=== PATIENT | male | born 1945 | race Caucasian/White ===

== ENCOUNTER 2017-11-17 19:02 | Inpatient (IN) | payer MEDICARE, BC ==
[~2017-11-17] VITALS: Ht 182.9 cm; Wt 104.1 kg
[2017-11-17] VITALS (15 sets, daily range): BP systolic 75–131; BP diastolic 48–78; PULSE 59–78; RESP 16–20; TEMP 97.7; O2SAT 62–97
[2017-11-17] MEDS ORDERED: ASPIRIN 81 MG CHEW TAB PO ONE (19:30)
[2017-11-17] MEDS ORDERED: SODIUM CHLORIDE 0.9% FLUSH 10 ML FLUSH IVF PRN (19:30)
[2017-11-17] MEDS ORDERED: MORPHINE SULFATE 4 MG/ML INJ IV PUSH ONE (19:30)
--- NOTE | 2017-11-17 19:47 | RADRPT ---
EXAM DATE/TIME: 11/17/2017 19:22 [place] COMPARISON: No previous studies available for comparison. INDICATIONS : Chest pain. MEDICAL HISTORY : Diabetes mellitus type II. Hypercholesterolemia. Hypertension. Glaucoma. SURGICAL HISTORY : None. ENCOUNTER: Initial ACUITY: 1 day PAIN SCORE: 4/10 LOCATION: Bilateral chest FINDINGS: Underinflated frontal and lateral views of the chest demonstrate a normal-sized cardiac silhouette wi th calcification of the aorta. There is atelectasis at the lung bases. No pleural effusion, airspace consolidation, or pneumothorax is identified. Bones and soft tissues demonstrate no acute abnormality . CONCLUSION: No acute cardiopulmonary abnormality is identified. Micheal Mendez MD on November 17, 2017 at 19:44 Board Certified Radiologist. This report was verified electronically.
[2017-11-17 19:58] LABS: AUTOMATED NEUTROPHIL # 3.9 TH/MM3 (1.8-7.7); BASOPHIL # 0.1 TH/MM3 (0-0.2); BASOPHIL % 1.3 % (0.0-2.0); EOSINOPHIL # 0.3 TH/MM3 (0-0.4); HEMATOCRIT 46.7 % (39.0-51.0); LYMPH % 28.3 % (9.0-44.0); LYMPHOCYTE # 1.9 TH/MM3 (1.0-4.8); MEAN CELL VOLUME 93.3 FL (80.0-100.0); MEAN CORPUSCULAR HEMOGLOBIN 30.1 PG (27.0-34.0); MEAN CORPUSCULAR HGB CONC 32.2 % (32.0-36.0); MEAN PLATELET VOLUME 9.5 FL (7.0-11.0); MONO % 5.9 % (0.0-8.0); MONOCYTE # 0.4 TH/MM3 (0-0.9); NEUT % 60.5 % (16.0-70.0); PLATELET COUNT 256 TH/MM3 (150-450); WHITE BLOOD COUNT 6.6 TH/MM3 (4.0-11.0)
[2017-11-17] MEDS ORDERED: NITROGLYCERIN 2% OINT 1 GM PACKET TOPICAL ONE (20:00)
[2017-11-17 20:03] LABS: CHLORIDE 103 MEQ/L (98-107); SODIUM (NA) 138 MEQ/L (136-145)
[2017-11-17 20:05] LABS: CALCIUM 9.3 MG/DL (8.5-10.1)
[2017-11-17 20:06] LABS: BLOOD UREA NITROGEN 11 MG/DL (7-18); GLUCOSE,RANDOM 193 MG/DL (74-106); MAGNESIUM 2.1 MG/DL (1.5-2.5)
[2017-11-17 20:09] LABS: GLOMERULAR FILTRATION RATE 66 ML/MIN (>89)
[2017-11-17 20:14] LABS: TROPONIN I LESS THAN 0.02 NG/ML (0.02-0.05)
--- NOTE | 2017-11-17 20:17 | PD ---
HPI . Chest pain Chief Complaint: Chest Pain Time Seen by Provider: 19:10 Travel History International Travel<30 days: No Contact w/Intl Traveler<30days: No Traveled to known affect area: No History of Present Illness HPI This patient presents with chest pain. Onset was 6:30 PM. He is to his jaw and shoulder. He describes the pain as sharp. It is associated with diaphoresis. At its most severe it was rated 8/10. This patient is on vacation here from [place]. He was transported to us by [facility] and was given aspirin and a sublingual nitroglycerin prior to presentation. EMS reported that his blood pressure has been relatively low prior to presentation. The nurse got the report from EMS that his systolic pressure was 90. The patient does state that his chest pain is slightly relieved by a single sublingual nitroglycerin. PFSH Past Medical History Cardiovascular Problems: Yes (HTN) Diabetes: Yes Social History Tobacco Use: No Allergies-Medications (Allergen,Severity, Reaction): Coded Allergies: No Known Allergies (Unverified , 11/17/17) Review of Systems Except as stated in HPI: all other systems reviewed are Neg General / Constitutional: Positive: Other Cardiovascular: Positive: Chest Pain or Discomfort Physical Exam Narrative Initial systolic blood pressure was 84 GENERAL: Awake and alert. He looks uncomfortable. SKIN: [place]. Clammy. HEAD: Normocephalic. Atraumatic. EYES: Pupils equal and round. No scleral icterus. No injection or drainage. ENT: No nasal bleeding or discharge. Mucous membranes pink and moist. NECK: Trachea midline. Full range of motion without pain.. CARDIOVASCULAR: Regular rate and rhythm. Heart sounds normal. RESPIRATORY: No accessory muscle use. Clear to auscultation. Breath sounds equal bilaterally. GASTROINTESTINAL: Abdomen soft. Nontender. Bowel sounds present. Nondistended. MUSCULOSKELETAL: No obvious deformities. NEUROLOGICAL: Awake and alert. No obvious cranial nerve deficits. Motor grossly within normal limits. Normal speech. PSYCHIATRIC: Appropriate mood and affect; insight and judgment normal. Data Data Last Documented VS Vital Signs Date Time Temp Pulse Resp B/P (MAP) Pulse Ox O2 Delivery O2 Flow Rate FiO2 11/17/17 19:57 74 18 116/78 (91) 96 Room Air 11/17/17 19:02 97.7 Orders Orders Basic Metabolic Panel (Bmp) (11/17/17 19:17) Complete Blood Count With Diff (2/24/18 19:17) Magnesium (Mg) (11/17/17 19:17) Prothrombin Time / Inr (Pt) (11/17/17 19:17) Act Partial Throm Time (Ptt) (11/17/17 19:17) Troponin I (11/17/17 19:17) Ecg Monitoring (11/17/17 19:17) Iv Access Insert/Monitor (11/17/17 19:17) Oximetry (11/17/17 19:17) Aspirin Chew (Aspirin Chew) (11/17/17 19:30) Morphine Inj (Morphine Inj) (11/17/17 19:30) Sodium Chloride 0.9% Flush (Ns Flush) (11/17/17 19:30) Chest, Pa & Lat (11/17/17 19:17) Electrocardiogram (11/17/17 19:04) Nitroglycerin 2% Oint (Nitroglycerin 2% (11/17/17 20:00) Ondansetron Inj (Zofran Inj) (11/17/17 20:30) Morphine Inj (Morphine Inj) (11/17/17 20:30) Heparin Inj (Heparin Inj) (11/17/17 20:30) Heparin Inj (Heparin Inj) (11/18/17 02:30) Heparin Inj (Heparin Inj) (11/18/17 02:30) Heparin-D5w 25,000 U/250 Ml (Heparin-D5w (11/17/17 20:30) Cbc No Diff, Includes Plts (11/20/17 06:00) Act Partial Throm Time (Ptt) (11/18/17 03:18) Occult Blood (Hemoccult) Stool (11/17/17 20:18) Bedside Glucose GEENA.CSUGAR (11/17/17 20:22) Blood Glucose Goal (Criteria) (11/17/17 20:22) Hypoglycemia 70 Mg/Dl Or < (11/17/17 20:22) Notify Dr: Other (11/17/17 20:22) Dextrose 50% In [place] (Vial) Inj (D50w (Vi (11/17/17 20:30) Glucagon Inj (Glucagon Inj) (11/17/17 20:30) Insulin Aspart Supplemtl Scale (Novolog (11/17/17 21:00) Admit To Inpatient (11/17/17 ) Vital Signs (Adult) Q4H (11/17/17 20:22) Activity Oob With Assistance (11/17/17 20:22) Slip Caster / Telemetry .CONTINUOUS (11/17/17 20:22) Intake + Output GEENA.QSHIFT (11/17/17 20:22) Diet Heart Healthy (11/18/17 Breakfast) Sodium Chlor 0.9% 1000 Ml Inj (Ns 1000 M (11/17/17 20:22) Sodium Chloride 0.9% Flush (Ns Flush) (11/17/17 20:30) Sodium Chloride 0.9% Flush (Ns Flush) (11/17/17 21:00) Ondansetron Inj (Zofran Inj) (11/17/17 20:30) Comprehensive Metabolic Panel (11/18/17 06:00) Complete Blood Count With Diff (11/18/17 06:00) Troponin I (11/18/17 00:00) Troponin I (11/18/17 06:00) Case Management Consult (11/17/17 20:22) Acetaminophen (Tylenol) (11/17/17 20:30) Acetamin-Hydrocod 325-5 Mg ([place] 5-325 (11/17/17 20:30) Morphine Inj (Morphine Inj) (11/17/17 20:30) Docusate Sodium-Senna (Jadyn-Colace) (11/17/17 21:00) Magnesium Hydroxide Liq (Milk Of Magnesi (11/17/17 20:30) Sennosides (Senokot) (11/17/17 20:30) Bisacodyl Supp (Dulcolax Supp) (11/17/17 20:30) Lactulose Liq (Lactulose Liq) (11/17/17 20:30) Inpatient Certification (11/17/17 ) Hemoglobin (Hgb) A1c (11/18/17 06:00) Lipid Profile (11/18/17 06:00) Pravastatin (Pravachol) (11/17/17 21:00) Aspirin Ec (Ecotrin Ec) (11/18/17 09:00) Labs Laboratory Tests Test 11/17/17 19:20 White Blood Count 6.6 TH/MM3 Red Blood Count 5.00 MIL/MM3 Hemoglobin 15.0 GM/DL Hematocrit 46.7 % Mean Corpuscular Volume 93.3 FL Mean Corpuscular Hemoglobin 30.1 PG Mean Corpuscular Hemoglobin Concent 32.2 % Red Cell Distribution Width 13.0 % Platelet Count 256 TH/MM3 Mean Platelet Volume 9.5 FL Neutrophils (%) (Auto) 60.5 % Lymphocytes (%) (Auto) 28.3 % Monocytes (%) (Auto) 5.9 % Eosinophils (%) (Auto) 4.0 % Basophils (%) (Auto) 1.3 % Neutrophils # (Auto) 3.9 TH/MM3 Lymphocytes # (Auto) 1.9 TH/MM3 Monocytes # (Auto) 0.4 TH/MM3 Eosinophils # (Auto) 0.3 TH/MM3 Basophils # (Auto) 0.1 TH/MM3 CBC Comment DIFF FINAL Differential Comment Prothrombin Time 10.7 SEC Prothromb Time International Ratio 1.1 RATIO Activated Partial Thromboplast Time 20.4 SEC Blood Urea Nitrogen 11 MG/DL Creatinine 1.10 MG/DL Random Glucose 193 MG/DL Calcium Level 9.3 MG/DL Magnesium Level 2.1 MG/DL Sodium Level 138 MEQ/L Potassium Level 4.4 MEQ/L Chloride Level 103 MEQ/L Carbon Dioxide Level 25.0 MEQ/L Anion Gap 10 MEQ/L Estimat Glomerular Filtration Rate 66 ML/MIN Troponin I LESS THAN 0.02 NG/ML Exceptions Acute Myocardial Infarction ASA Not Given on Arrival: Already Given by EMS MDM Medical Decision Making Medical Screen Exam Complete: Yes Emergency Medical Condition: Yes Interpretation(s) EKG shows a sinus rhythm with an intraventricular conduction delay. No STEMI criteria. No old EKGs for comparison. Differential Diagnosis Differential diagnosis of chest pain includes but is not limited to musculoskeletal pain, pulmonary embolism, acute coronary syndrome, pneumonia, pleurisy Narrative Course This patient presents with chief complaint of chest pain. He was treated with aspirin and nitroglycerin by EMS. He had some improvement of his chest pain with nitroglycerin. However, the nitroglycerin has dropped his pressure. He has been given a fluid bolus and his pressure has improved. After his pressure improved, I ordered Nitropaste. He has also been given morphine. CBC & BMP Diagram 11/17/17 19:20 Calcium Level 9.3, Magnesium Level 2.1 Troponin < 0.02 He continues to have significant discomfort. I have a high index of suspicion with this patient. I have started him on a heparin drip. Arrangements have been made for him to be admitted to the hospital. I have consult to cardiology who requested the patient be sent to the main hospital. Physician Communication Physician Communication Dr. Daily and Dr. Hutton. Diagnosis Primary Impression: Chest pain Qualified Codes: R07.9 - Chest pain, unspecified Admitting Information Admitting Physician Requests: Admit Condition: Stable Leatha Apple MD Nov 17, 2017 20:17
[2017-11-17 20:23] LABS: INTERNATIONAL NORMALIZED RATIO 1.1 RATIO; PROTHROMBIN TIME - PATIENT 10.7 SEC (9.8-11.6)
[2017-11-17] MEDS ORDERED: SODIUM CHLORIDE 0.9% FLUSH 10 ML FLUSH IV FLUSH PRN (20:30)
[2017-11-17] MEDS ORDERED: ONDANSETRON HCL 4 MG/2 ML VIAL IVP PRN (20:30)
[2017-11-17] MEDS ORDERED: ACETAMINOPHEN/HYDROcodone 325 MG/5 MG TAB PO PRN (20:30)
[2017-11-17] MEDS ORDERED: MAGNESIUM HYDROXIDE SUSP 30 ML CUP PO PRN (20:30)
[2017-11-17] MEDS ORDERED: MORPHINE SULFATE 2 MG/ML INJ IV PUSH PRN (20:30)
[2017-11-17] MEDS ORDERED: HEPARIN SODIUM - IV 10,000 UNITS/10 ML VIAL IV PUSH ONE (20:30)
[2017-11-17] MEDS ORDERED: DEXTROSE 50% IN WATER 50 ML VIAL(D50) IV PUSH PRN (20:30)
[2017-11-17] MEDS ORDERED: ACETAMINOPHEN 325 MG TAB PO PRN (20:30)
[2017-11-17] MEDS ORDERED: LACTULOSE SYRUP 20 GM/30 ML CUP PO PRN (20:30)
[2017-11-17] MEDS ORDERED: ONDANSETRON HCL 4 MG/2 ML VIAL IV PUSH ONE (20:30)
[2017-11-17] MEDS ORDERED: GLUCAGON 1 MG/ML VIAL OTHER PRN (20:30)
[2017-11-17] MEDS ORDERED: MORPHINE SULFATE 4 MG/ML INJ IV ONE (20:30)
[2017-11-17] MEDS ORDERED: BISACODYL 10 MG SUPP RECTAL PRN (20:30)
[2017-11-17] MEDS ORDERED: SENNOSIDES 8.6 MG TAB PO PRN (20:30)
--- NOTE | 2017-11-17 21:07 | EKG ---
Date Performed: 11/17/2017 Time Performed: 19:04:20 PTAGE: 72 years EKG: Sinus rhythm NONSPECIFIC INTRAVENTRICULAR CONDUCTION DELAY BORDERLINE ECG NO PREVIOUS TRACING DOCTOR: Nelson Hutton Interpretating Date/Time 11/17/2017 21:05:38
[2017-11-17] MEDS: HEPARIN-D5W 25,000 U/250 ML 250 ML IV PRN (22:06)
[2017-11-17] MEDS: SODIUM CHLOR 0.9% 1000 ML INJ 1,000 ML IV SCH (22:07)
[2017-11-17] MEDS: PRAVASTATIN SOD 40 MG TAB PO SCH (22:07)
[2017-11-17] MEDS: DOCUSATE SODIUM 50 MG/SENNA 8.6 MG TAB PO SCH (22:07)
[2017-11-17] MEDS: INSULIN ASPART SUPPLEMENTAL SCALE SQ SCH (22:07)
[2017-11-17] MEDS: SODIUM CHLORIDE 0.9% FLUSH 10 ML FLUSH IV FLUSH SCH (22:08)
[2017-11-17] MEDS ORDERED: NITROGLYCERIN-D5W 50 MG/250 ML 250 ML IV ONE (22:45)
[2017-11-18] VITALS (19 sets, daily range): BP systolic 90–137; BP diastolic 60–80; PULSE 50–82; RESP 16–24; TEMP 98.1–98.8; O2SAT 92–96
[2017-11-18] MEDS ORDERED: NAPR250T4 PO (00:50)
[2017-11-18] MEDS ORDERED: NORV2.5T PO (00:50)
[2017-11-18] MEDS ORDERED: MOBI7.5T PO (00:50)
[2017-11-18] MEDS ORDERED: SITA25 PO (00:50)
[2017-11-18] MEDS ORDERED: LIPI10TA PO (00:50)
[2017-11-18] MEDS ORDERED: CANA100T PO (00:50)
[2017-11-18] MEDS ORDERED: DIOV40TA PO (00:50)
[2017-11-18] MEDS ORDERED: ASPI-516 CHEW (00:50)
[2017-11-18] MEDS ORDERED: VENL25TA PO (00:50)
[2017-11-18] MEDS ORDERED: GLIP5TAB8 PO (00:50)
[2017-11-18] MEDS ORDERED: METF500T PO (00:50)
[2017-11-18] MEDS ORDERED: HEPARIN SODIUM - IV 10,000 UNITS/10 ML VIAL IV PUSH PRN ×2 (02:30)
[2017-11-18] MEDS ORDERED: SODIUM CHLOR 0.9% 1000 ML INJ 1,000 ML IV ONE (03:30)
[2017-11-18] MEDS: SODIUM CHLOR 0.9% 1000 ML INJ 1,000 ML IV SCH ×4 (03:50→20:59)
[2017-11-18 06:13] LABS: AUTOMATED NEUTROPHIL # 7.5 TH/MM3 (1.8-7.7); BASOPHIL % 0.2 % (0.0-2.0); EOSINOPHIL % 0.4 % (0.0-4.0); HEMATOCRIT 43.2 % (39.0-51.0); HEMOGLOBIN 14.4 GM/DL (13.0-17.0); LYMPH % 10.5 % (9.0-44.0); LYMPHOCYTE # 0.9 TH/MM3 (1.0-4.8); MEAN CORPUSCULAR HEMOGLOBIN 31.1 PG (27.0-34.0); MEAN CORPUSCULAR HGB CONC 33.5 % (32.0-36.0); MEAN PLATELET VOLUME 9.1 FL (7.0-11.0); MONO % 4.1 % (0.0-8.0); MONOCYTE # 0.4 TH/MM3 (0-0.9); NEUT % 84.8 % (16.0-70.0); PLATELET COUNT 215 TH/MM3 (150-450); RED BLOOD COUNT 4.64 MIL/MM3 (4.50-5.90); WHITE BLOOD COUNT 8.8 TH/MM3 (4.0-11.0)
[2017-11-18 06:30] LABS: ALBUMIN 3.8 GM/DL (3.4-5.0); AST (GOT) 61 U/L (15-37); BICARBONATE 24.6 MEQ/L (21.0-32.0); BLOOD UREA NITROGEN 13 MG/DL (7-18); CHLORIDE 108 MEQ/L (98-107); CREATININE 1.24 MG/DL (0.60-1.30); GLOMERULAR FILTRATION RATE 58 ML/MIN (>89); GLUCOSE,RANDOM 187 MG/DL (74-106); SODIUM (NA) 140 MEQ/L (136-145)
[2017-11-18 06:31] LABS: CHOLESTEROL 107 MG/DL (120-200)
[2017-11-18 06:36] LABS: ALKALINE PHOSPHATASE 44 U/L (45-117); ALT (GPT) 32 U/L (12-78); CHOLESTEROL/ HDL RATIO 2.75 RATIO; HDL CHOLESTEROL 38.9 MG/DL (40.0-60.0); LDL CHOLESTEROL 24 MG/DL (0-99); TOTAL BILIRUBIN ADULT 0.4 MG/DL (0.2-1.0); TOTAL PROTEIN 6.4 GM/DL (6.4-8.2); TRIGLYCERIDES 221 MG/DL (42-150)
--- NOTE | 2017-11-18 07:56 | HHI.HP ---
[facility] Physician No Primary Care Physician Admission Diagnosis CP Diagnoses: (1) Chest pain Diagnosis: Principal Chief Complaint: chest pain Travel History International Travel<30 Days: No Contact w/Intl Traveler <30 Da: No Traveled to Known Affected Are: No History of Present Illness patient is a 72 y/o male with history of hypertension, diabetes, dyslipidemia who presented to ER with chest pain. he says that the pain started around six last night. pain was midsternal with some radiation to the jaws and shoulders. pain was associated with some diaphoresis. it didn't respond to nitro as much. he denies any previous chest pain and was pain free at the time of my evaluation. he had a stress test four-five years ago which was reportedly normal. Review of Systems Constitutional: COMPLAINS OF: Diaphoretic episodes, DENIES: Fever, Weight loss , Chills, Night Sweats Eyes: DENIES: Blurred vision, Diplopia, Vision loss, Double Vision Ears, nose, mouth, throat: DENIES: Tinnitus, Vertigo, Throat pain, Epistaxis Respiratory: DENIES: Apneas, Cough, Snoring, Wheezing, Hemoptysis, Sputum production, Shortness of breath Cardiovascular: COMPLAINS OF: Chest pain, DENIES: Palpitations, Syncope, Dyspnea on Exertion, PND, Lower Extremity Edema, Orthopnea, Claudication Gastrointestinal: DENIES: Abdominal pain, Black stools, Bloody stools, Constipation, Diarrhea, Nausea, Vomiting, Difficulty Swallowing, Anorexia Genitourinary: DENIES: Urinary frequency, Urgency, Hematuria, Dysuria Musculoskeletal: DENIES: Joint pain, Muscle aches, Stiffness, Joint Swelling Integumentary: DENIES: Rash Neurologic: DENIES: Abnormal gait, Headache, Localized weakness, Paresthesias, Seizures, Speech Problems, Tremor, Poor Balance Psychiatric: DENIES: Anxiety, Confusion, Mood changes, Depression, Hallucinations, Agitation, Suicidal Ideation, Homicidal Ideation, Delusions Past Family Social History Past Medical History hypertension/ dyslipidemia/ diabetes mellitus Past Surgical History none Reported Medications aspirin/valsartan/amlodipine/metformin/ glipizide/atorvastatin/januvia Allergies: Coded Allergies: No Known Allergies (Unverified , 11/17/17) Active Ordered Medications Inpatient Medications Acetaminophen (Tylenol) 650 mg Q6H PRN PO FEVER/PAIN SCALE 1 TO 2; Start at 20:30 Acetaminophen/ Hydrocodone Bitart ([place] 5-325 Mg) 1 tab Q4H PRN PO PAIN SCALE 3 TO 5; Start 11/17/17 at 20:30 Aspirin (Aspirin Chew) 324 mg ONCE ONCE PO Last administered on 11/17/17at 19: 51; Start 11/17/17 at 19:30; Stop 11/17/17 at 19:31; Status DC Aspirin (Ecotrin Ec) 81 mg DAILY PO ; Start 11/18/17 at 09:00 Bisacodyl (Dulcolax Supp) 10 mg DAILY PRN RECTAL SEVERE CONSITIPATION; Start at 20:30 Dextrose (D50w (Vial) Inj) 50 ml UNSCH PRN IV PUSH HYPOGLYCEMIA-SEE COMMENTS; Start 11/17/17 at 20:30 Glucagon (Glucagon Inj) 1 mg UNSCH PRN OTHER HYPOGLYCEMIA-SEE COMMENTS; Start 11/17/17 at 20:30 Heparin Sodium (Porcine) (Heparin Inj) 2,500 units UNSCH PRN IV PUSH APTT 25 TO 39; Start 11/18/17 at 02:30 Heparin Sodium/ Dextrose 250 ml @ 10 mls/hr TITRATE PRN IV Coagulation Management Last administered on 11/17/17at 22:06; Start 11/17/17 at 20:30 Insulin Aspart (NovoLOG SUPPLEMENTAL SCALE) 1 ACHS SLIDING SCALE SQ Last administered on 11/17/17at 22:07; Start 11/17/17 at 21:00 Lactulose (Lactulose Liq) 30 ml DAILY PRN PO SEVERE CONSITIPATION; Start at 20:30 Magnesium Hydroxide (Milk Of Magnesia Liq) 30 ml Q12H PRN PO Mild constipation ; Start 11/17/17 at 20:30 Morphine Sulfate (Morphine Inj) 2 mg Q3H PRN IV PUSH Pain 6-10 Last administered on 11/17/17at 22:34; Start 11/17/17 at 20:30 Nitroglycerin (Nitroglycerin 2% Oint) 1 inch ONCE ONCE TOPICAL Last administered on 11/17/17at 20:44; Start 11/17/17 at 20:00; Stop 11/17/17 at 22:38 ; Status DC Nitroglycerin/ Dextrose 250 ml @ 0 mls/hr TITRATE ONCE IV Last administered on 11/17/17at 22:45; Start 11/17/17 at 22:45; Stop 11/17/17 at 22:46; Status DC Ondansetron HCl (Zofran Inj) 4 mg Q6H PRN IVP NAUSEA OR VOMITING; Start at 20:30 Pravastatin Sodium (Pravachol) 40 mg HS PO Last administered on 11/17/17at 22:07 ; Start 11/17/17 at 21:00 Senna/Docusate Sodium (Jadyn-Colace) 1 tab BID PO Last administered on at 22:07; Start 11/17/17 at 21:00 Sennosides (Senokot) 17.2 mg Q12H PRN PO Moderate constipation; Start 11/17/17 at 20:30 Sodium Chloride 1,000 ml @ 999 mls/hr BOLUS ONCE IV Last administered on 11/18at 03:50; Start 11/18/17 at 03:30; Stop 11/18/17 at 04:30; Status DC Sodium Chloride (NS Flush) 2 ml BID IV FLUSH Last administered on 11/17/17at 22: 08; Start 11/17/17 at 21:00 Family History CAD in father. Social History doesn't smoke. drinks occasionally. Physical Exam Vital Signs Vital Signs Date Time Temp Pulse Resp B/P (MAP) Pulse Ox O2 Delivery O2 Flow Rate FiO2 11/18/17 03:56 50 16 90/60 (70) 94 11/18/17 03:40 50 16 92/60 (71) 95 Room Air Automatic Cuff 11/18/17 01:01 79 16 128/72 (90) 95 Room Air 11/18/17 00:15 75 16 119/80 (93) 95 Room Air 11/17/17 23:53 18 11/17/17 23:15 76 16 131/78 (95) 94 Room Air 11/17/17 22:45 66 117/76 11/17/17 22:45 78 18 117/76 (90) 94 Room Air 11/17/17 22:39 18 11/17/17 22:25 70 18 108/68 (81) 95 Room Air 11/17/17 22:05 73 18 119/60 (79) 94 Room Air 11/17/17 21:45 76 18 109/66 (80) 94 Room Air 11/17/17 21:25 70 18 110/66 (81) 95 Room Air 11/17/17 21:10 60 18 119/69 (86) 97 Room Air 11/17/17 20:55 61 18 112/69 (83) 93 Room Air 11/17/17 20:49 18 11/17/17 20:40 61 18 106/64 (78) 97 Room Air 11/17/17 20:25 59 18 106/70 (82) Room Air 11/17/17 20:10 64 18 122/73 (89) 96 Room Air 11/17/17 19:57 74 18 116/78 (91) 96 Room Air 11/17/17 19:56 18 11/17/17 19:24 69 18 89/58 (68) 93 Room Air 11/17/17 19:20 60 20 84/58 (67) 92 Room Air 11/17/17 19:02 97.7 62 18 75/48 (57) 93 11/17/17 19:02 69 18 93 Room Air Physical Exam GENERAL: This is a well-nourished, well-developed patient, in no apparent distress. SKIN: No rashes, ecchymoses or lesions. Cool and dry. HEAD: Atraumatic. Normocephalic. No temporal or scalp tenderness. EYES: Pupils equal round and reactive. Extraocular motions intact. No scleral icterus. No injection or drainage. ENT: Nose without bleeding, purulent drainage or septal hematoma. Throat without erythema, tonsillar hypertrophy or exudate. Uvula midline. Airway patent. NECK: Trachea midline. No JVD or lymphadenopathy. Supple, nontender, no meningeal signs. CARDIOVASCULAR: Regular rate and rhythm without murmurs, gallops, or rubs. RESPIRATORY: Clear to auscultation. Breath sounds equal bilaterally. No wheezes , rales, or rhonchi. GASTROINTESTINAL: Abdomen soft, non-tender, nondistended. No hepato-splenomegaly , or palpable masses. No guarding. MUSCULOSKELETAL: Extremities without clubbing, cyanosis, or edema. No joint tenderness, effusion, or edema noted. No calf tenderness. Negative Homans sign bilaterally. NEUROLOGICAL: Awake and alert. Cranial nerves II through XII intact. Motor and sensory grossly within normal limits. Five out of 5 muscle strength in all muscle groups. Normal speech. Laboratory Laboratory Tests Test 11/17/17 19:20 11/17/17 22:31 11/18/17 04:10 11/18/17 05:45 White Blood Count 6.6 8.8 Red Blood Count 5.00 4.64 Hemoglobin 15.0 14.4 Hematocrit 46.7 43.2 Mean Corpuscular Volume 93.3 93.0 Mean Corpuscular Hemoglobin 30.1 31.1 Mean Corpuscular Hemoglobin Concent 32.2 33.5 Red Cell Distribution Width 13.0 14.0 Platelet Count 256 215 Mean Platelet Volume 9.5 9.1 Neutrophils (%) (Auto) 60.5 84.8 Lymphocytes (%) (Auto) 28.3 10.5 Monocytes (%) (Auto) 5.9 4.1 Eosinophils (%) (Auto) 4.0 0.4 Basophils (%) (Auto) 1.3 0.2 Neutrophils # (Auto) 3.9 7.5 Lymphocytes # (Auto) 1.9 0.9 Monocytes # (Auto) 0.4 0.4 Eosinophils # (Auto) 0.3 0.0 Basophils # (Auto) 0.1 0.0 CBC Comment DIFF FINAL DIFF FINAL Differential Comment Prothrombin Time 10.7 Prothromb Time International Ratio 1.1 Activated Partial Thromboplast Time 20.4 29.9 Blood Urea Nitrogen 11 13 Creatinine 1.10 1.24 Random Glucose 193 187 Calcium Level 9.3 9.0 Magnesium Level 2.1 Sodium Level 138 140 Potassium Level 4.4 4.7 Chloride Level 103 108 Carbon Dioxide Level 25.0 24.6 Anion Gap 10 7 Estimat Glomerular Filtration Rate 66 58 Troponin I LESS THAN 0.02 0.04 Total Protein 6.4 Albumin 3.8 Alkaline Phosphatase 44 Aspartate Amino Transf (AST/SGOT) 61 Alanine Aminotransferase (ALT/SGPT) 32 Total Bilirubin 0.4 Triglycerides Level 221 Cholesterol Level 107 LDL Cholesterol 24 HDL Cholesterol 38.9 Cholesterol/HDL Ratio 2.75 Result Diagram: 11/18/1745 11/18/1745 Imaging Last Impressions Chest X-Ray 11/17/17 191 Signed Impressions: Service Date/Time: Friday, November 17, 2017 19:22 - CONCLUSION: No acute cardiopulmonary abnormality is identified. Micheal Mendez MD EKG; NSR with no acute ST-T changes. Caprini VTE Risk Assessment Caprini VTE Risk Assessment: Mod/High Risk (score >= 2) Caprini Risk Assessment Model Point Value = 1 Point Value = 2 Point Value = 3 Point Value = 5 Age 41-60 Minor surgery BMI > 25 kg/m2 Swollen legs Varicose veins or History of unexplained or recurrent spontaneous Oral contraceptives or hormone replacement Sepsis (< 1 month) Serious lung disease, including pneumonia (< 1 month) Abnormal pulmonary function Acute myocardial infarction Congestive heart failure (< 1 month) History of inflammatory bowel disease Medical patient at bed rest Age 61-74 Arthroscopic surgery Major open surgery (> 45 min) Laparoscopic surgery (> 45 min) Malignancy Confined to bed (> 72 hours) Immobilizing plaster cast Central venous access Age >= 75 History of VTE Family history of VTE Factor V Leiden Prothrombin [id number] Lupus anticoagulant Anticardiolipin antibodies Elevated serum homocysteine Heparin-induced thrombocytopenia Other congenital or acquired thrombophilia Stroke (< 1 month) Elective arthroplasty Hip, pelvis, or leg fracture Acute spinal cord injury (< 1 month) Prophylaxis Regimen Total Risk Factor Score Risk Level Prophylaxis Regimen 0-1 Low Early ambulation 2 Moderate Order ONE of the following: *Sequential Compression Device (SCD) *Heparin 5000 units SQ BID 3-4 Higher Order ONE of the following medications: *Heparin 5000 units SQ TID *Enoxaparin/Lovenox 40 mg SQ daily (WT < 150 kg, CrCl > 30 mL/min) *Enoxaparin/Lovenox 30 mg SQ daily (WT < 150 kg, CrCl > 10-29 mL/min) *Enoxaparin/Lovenox 30 mg SQ BID (WT < 150 kg, CrCl > 30 mL/min) AND/OR *Sequential Compression Device (SCD) 5 or more Highest Order ONE of the following medications: *Heparin 5000 units SQ TID (Preferred with Epidurals) *Enoxaparin/Lovenox 40 mg SQ daily (WT < 150 kg, CrCl > 30 mL/min) *Enoxaparin/Lovenox 30 mg SQ daily (WT < 150 kg, CrCl > 10-29 mL/min) *Enoxaparin/Lovenox 30 mg SQ BID (WT < 150 kg, CrCl > 30 mL/min) AND *Sequential Compression Device (SCD) Assessment and Plan Assessment and Plan A/P - chest pain started on Heparin drip- continue aspirin and statin- cardiology consulted. keep NPO till cardiology evaluation. -hypertension; BP on low side- hold BP meds for now -dyslipidemia; on statin -diabetes mellitus; hold oral meds- accu-check with SSI -DVT prophylaxis; on Heparin drip. Discussed Condition With the patient. Physician Certification 2 Midnight Certification Type: Admission for Inpatient Services Order for Inpatient Services The services are ordered in accordance with Medicare regulations or non- Medicare payer requirements, as applicable. In the case of services not specified as inpatient-only, they are appropriately provided as inpatient services in accordance with the 2-midnight benchmark. Estimated LOS (days): 2 days is the estimated time the patient will need to remain in the hospital, assuming treatment plan goals are met and no additional complications. Post-Hospital Plan: Home Problem Qualifiers (1) Chest pain: Qualified Codes: R07.9 - Chest pain, unspecified Pat Alcala MD Nov 18, 2017 07:56
[2017-11-18] MEDS: INSULIN ASPART SUPPLEMENTAL SCALE SQ SCH ×4 (08:00→20:54)
[2017-11-18] MEDS: DOCUSATE SODIUM 50 MG/SENNA 8.6 MG TAB PO SCH ×2 (09:00→20:52)
--- NOTE | 2017-11-18 09:19 | EKG ---
Date Performed: 11/17/2017 Time Performed: 22:36:11 PTAGE: 72 years EKG: Sinus rhythm PROBABLE INFERIOR MYOCARDIAL INFARCTION NONSPECIFIC INTRAVENTRICULAR CONDUCTION DELAY ABNORMAL ECG NO PREVIOUS TRACING DOCTOR: Nelson Hutton Interpretating Date/Time 11/18/2017 09:18:16
[2017-11-18] MEDS: ASPIRIN EC 81 MG TABEC PO SCH (10:20)
[2017-11-18] MEDS: SODIUM CHLORIDE 0.9% FLUSH 10 ML FLUSH IV FLUSH SCH ×2 (10:23→20:53)
--- NOTE | 2017-11-18 10:25 | MB ---
cc: YOLANDA LUGO M.D. DATE OF CONSULTATION: 11/18/2017 REASON FOR CONSULTATION Chest pain. HISTORY OF PRESENT ILLNESS The patient is a 72-year-old white male, visiting here from [place], with a history of hypertension, diabetes, who was in his usual state of health up until 06:30 p.m. last night when he began to experience sharp substernal chest pain associated with diaphoresis without nausea or shortness of breath. The discomfort lasted about 1 hour in a constant fashion. He was doing minimal activity, removing a screen on his RV at the time. He has had no further chest discomforts. He cannot recall any other chest pains in the last few months. He denies pleurisy, dizziness, syncope, near-syncope, palpitations, pedal edema, paroxysmal nocturnal dyspnea. PAST MEDICAL HISTORY 1. Hypertension. 2. Diabetes. MEDICATIONS Cardiac medications at home: 1. Aspirin. 2. Diovan. 3. Amlodipine. 4. Atorvastatin. ALLERGIES NO KNOWN DRUG ALLERGIES. FAMILY HISTORY The patient's father sustained a myocardial infarction in the 60s as did his sister. SOCIAL HISTORY The patient denies alcohol or tobacco abuse. REVIEW OF SYSTEMS As in the history of present illness, otherwise negative or noncontributory. He also denies headache, abdominal pain, melena, dyspepsia, recent flu symptoms. PHYSICAL EXAMINATION VITAL SIGNS: His blood pressure is 93/60 with a pulse of 70, respirations 17. GENERAL: In general he is a well-developed, well-nourished white male in no acute distress. HEENT: Jugular venous pressure is normal. Carotid pulses are 2+ bilaterally and without bruits. CHEST: Examination of the chest reveals clear lung cagle. CARDIAC: On cardiac examination he has a regular rhythm and rate without S3-S4 or murmur. ABDOMEN: On abdominal examination he has a soft, nontender abdomen. Bowel sounds are present. There is no definite hepatosplenomegaly. EXTREMITIES: Examination of extremities reveals no clubbing, cyanosis or edema. Peripheral pulses are normal throughout. LABORATORY DATA Laboratory data includes normal CBC, potassium 4.7, BUN 13, creatinine 1.24, troponin 0.04, total cholesterol 107, LDL 24, triglycerides 221. IMAGING STUDIES Chest x-ray shows no acute disease. EKG Shows sinus rhythm, nonspecific intraventricular conduction delay. IMPRESSION Single episode of overall atypical chest pain in this 72-year-old white male with a history of hypertension, diabetes, hyperlipidemia. He has had no further chest pains. Cardiac enzymes are negative for myocardial infarction. EKG shows no acute ST-segment or T-wave changes. He does have a number of risk factors for coronary disease including diabetes, hypertension, hyperlipidemia, family history. RECOMMENDATIONS 1. Check a Lexiscan nuclear stress test. If it is negative for ischemia he is cleared for discharge from a cardiac standpoint. ADDENDUM: The patient's third troponin level has increased to 3.3. I have recommended cardiac catheterization tomorrow. MD ISAIAH Sahu/SYLVIE /9:25 AM /10:15 AM MTDD
[2017-11-18] MEDS ORDERED: diphenhydrAMINE HCL 50 MG CAP PO SCH (10:45)
[2017-11-18] MEDS ORDERED: DIAZEPAM 10 MG TAB PO SCH (10:45)
[2017-11-18] MEDS ORDERED: MIDAZOLAM HCL 2 MG/2 ML VIAL IV PUSH SCH (10:45)
[2017-11-18 12:23] LABS: HEMOGLOBIN A1C 6.7 % (4.3-6.0)
[2017-11-18] MEDS: PRAVASTATIN SOD 40 MG TAB PO SCH (20:52)
[2017-11-18] MEDS: HEPARIN-D5W 25,000 U/250 ML 250 ML IV PRN (20:58)
[2017-11-19] VITALS (13 sets, daily range): BP systolic 120–160; BP diastolic 67–90; PULSE 55–89; RESP 11–30; TEMP 98–99; O2SAT 97–98
[2017-11-19] MEDS: SODIUM CHLOR 0.9% 1000 ML INJ 1,000 ML IV SCH ×2 (06:38→15:39)
[2017-11-19] MEDS: INSULIN ASPART SUPPLEMENTAL SCALE SQ SCH ×4 (08:00→21:00)
--- NOTE | 2017-11-19 09:25 | HHI.PR ---
Subjective Remarks in no acute distress. denies chest pain or sob. waiting cardiac cath. Objective Vitals Vital Signs Date Time Temp Pulse Resp B/P (MAP) Pulse Ox O2 Delivery O2 Flow Rate FiO2 11/19/17 06:00 55 11/19/17 04:00 56 11/19/17 04:00 98.4 56 11 120/68 (85) 98 11/19/17 02:00 68 11/19/17 00:00 98.5 66 21 121/76 (91) 98 11/19/17 00:00 66 11/18/17 22:00 74 11/18/17 22:00 74 24 137/78 (97) 95 11/18/17 20:00 98.7 77 21 113/73 (86) 96 11/18/17 20:00 77 11/18/17 18:00 75 11/18/17 17:00 68 11/18/17 16:00 76 11/18/17 16:00 98.1 76 20 110/68 (82) 96 11/18/17 15:00 82 11/18/17 14:00 66 11/18/17 13:00 64 11/18/17 12:00 65 11/18/17 12:00 98.3 65 16 107/62 (77) 93 11/18/17 11:00 69 11/18/17 10:00 69 I/O 11/18/17 11/18/17 11/18/17 11/19/17 11/19/17 11/19/17 07:00 15:00 23:00 07:00 15:00 23:00 Intake Total 618.4 ml 240 ml Output Total 300 ml 800 ml 1000 ml Balance 318.4 ml -800 ml -760 ml Intake Oral 240 ml IV Total 618.4 ml Output Urine Total 300 ml 800 ml 1000 ml # Bowel Movements 0 1 1 Result Diagram: 11/18/1745 11/18/1745 Imaging Last Impressions Chest X-Ray 11/17/171916 Signed Impressions: Service Date/Time: Friday, November 17, 2017 19:22 - CONCLUSION: No acute cardiopulmonary abnormality is identified. Micheal Mendez MD Objective Remarks GENERAL: This is a well-nourished, well-developed patient, in no apparent distress. CARDIOVASCULAR: Regular rate and regular rhythm without murmurs, gallops, or rubs. RESPIRATORY: Clear to auscultation. Breath sounds equal bilaterally. No wheezes , rales, or rhonchi. GASTROINTESTINAL: Abdomen soft, non-tender, nondistended. Normal, active bowel sounds MUSCULOSKELETAL: Extremities without clubbing, cyanosis, or edema. NEURO: Alert & Oriented x4 to person, place, time, situation. Moves all ext x4 Medications and IVs Inpatient Medications Acetaminophen (Tylenol) 650 mg Q6H PRN PO FEVER/PAIN SCALE 1 TO 2; Start at 20:30 Acetaminophen/ Hydrocodone Bitart ([place] 5-325 Mg) 1 tab Q4H PRN PO PAIN SCALE 3 TO 5; Start 11/17/17 at 20:30 Aspirin (Aspirin Chew) 324 mg ONCE ONCE PO Last administered on 11/17/17at 19: 51; Start 11/17/17 at 19:30; Stop 11/17/17 at 19:31; Status DC Aspirin (Ecotrin Ec) 81 mg DAILY PO Last administered on 11/18/17at 10:20; Start 11/18/17 at 09:00 Bisacodyl (Dulcolax Supp) 10 mg DAILY PRN RECTAL SEVERE CONSITIPATION; Start at 20:30 Dextrose (D50w (Vial) Inj) 50 ml UNSCH PRN IV PUSH HYPOGLYCEMIA-SEE COMMENTS; Start 11/17/17 at 20:30 Diazepam (Valium) 10 mg JUVENILE DETENTION OFFICER PO ; Start 11/18/17 at 10:45; Stop 11/22/17 at 10:44 Diphenhydramine HCl (Benadryl) 50 mg JUVENILE DETENTION OFFICER PO ; Start 11/18/17 at 10:45; Stop 11/22/17 at 10:44 Glucagon (Glucagon Inj) 1 mg UNSCH PRN OTHER HYPOGLYCEMIA-SEE COMMENTS; Start 11/17/17 at 20:30 Heparin Sodium (Porcine) (Heparin Inj) 2,500 units UNSCH PRN IV PUSH APTT 25 TO 39; Start 11/18/17 at 02:30 Heparin Sodium/ Dextrose 250 ml @ 10 mls/hr TITRATE PRN IV Coagulation Management Last administered on 11/18/17at 20:58; Start 11/17/17 at 20:30 Insulin Aspart (NovoLOG SUPPLEMENTAL SCALE) 1 ACHS SLIDING SCALE SQ Last administered on 11/17/17at 22:07; Start 11/17/17 at 21:00 Lactulose (Lactulose Liq) 30 ml DAILY PRN PO SEVERE CONSITIPATION; Start at 20:30 Magnesium Hydroxide (Milk Of Magnesia Liq) 30 ml Q12H PRN PO Mild constipation ; Start 11/17/17 at 20:30 Midazolam HCl (Versed Inj) 1 mg JUVENILE DETENTION OFFICER IV PUSH ; Start 11/18/17 at 10:45; Stop 11/22/17 at 10:44 Morphine Sulfate (Morphine Inj) 2 mg Q3H PRN IV PUSH Pain 6-10 Last administered on 11/17/17at 22:34; Start 11/17/17 at 20:30 Nitroglycerin (Nitroglycerin 2% Oint) 1 inch ONCE ONCE TOPICAL Last administered on 11/17/17at 20:44; Start 11/17/17 at 20:00; Stop 11/17/17 at 22:38 ; Status DC Nitroglycerin/ Dextrose 250 ml @ 0 mls/hr TITRATE ONCE IV Last administered on 11/17/17at 22:45; Start 11/17/17 at 22:45; Stop 11/17/17 at 22:46; Status DC Ondansetron HCl (Zofran Inj) 4 mg Q6H PRN IVP NAUSEA OR VOMITING; Start at 20:30 Pravastatin Sodium (Pravachol) 40 mg HS PO Last administered on 11/18/17at 20:52 ; Start 11/17/17 at 21:00 Senna/Docusate Sodium (Jadyn-Colace) 1 tab BID PO Last administered on at 22:07; Start 11/17/17 at 21:00 Sennosides (Senokot) 17.2 mg Q12H PRN PO Moderate constipation; Start 11/17/17 at 20:30 Sodium Chloride 1,000 ml @ 100 mls/hr Q10H IV Last administered on 11/19/17at 06:38; Start 11/18/17 at 10:38; Stop 11/23/17 at 10:37 Sodium Chloride (NS Flush) 2 ml BID IV FLUSH Last administered on 11/18/17at 20: 53; Start 11/17/17 at 21:00 A/P Problem List: (1) Chest pain ICD Code: R07.9 - Chest pain, unspecified Status: Acute Assessment and Plan - NSTEMI currently pain free. started on Heparin drip- continue aspirin and statin- cardiology consulted. plan for cardiac cath today. -hypertension; BP on low side- hold BP meds for now -dyslipidemia; on statin -diabetes mellitus; hold oral meds- accu-check with SSI -DVT prophylaxis; on Heparin drip. Discharge Planning awaiting cardiac cath and cardiology recommendations. Problem Qualifiers (1) Chest pain: Qualified Codes: R07.9 - Chest pain, unspecified Pat Alcala MD Nov 19, 2017 09:25
[2017-11-19] MEDS: DOCUSATE SODIUM 50 MG/SENNA 8.6 MG TAB PO SCH ×2 (09:43→21:00)
[2017-11-19] MEDS: ASPIRIN EC 81 MG TABEC PO SCH (09:43)
[2017-11-19] MEDS: SODIUM CHLORIDE 0.9% FLUSH 10 ML FLUSH IV FLUSH SCH ×2 (09:43→21:50)
[2017-11-19] MEDS ORDERED: VERAPAMIL HCL 5 MG/2 ML VIAL ONE (10:45)
[2017-11-19] MEDS ORDERED: HEPARIN SODIUM - IV 10,000 UNITS/10 ML VIAL ONE (10:45)
[2017-11-19] MEDS ORDERED: MIDAZOLAM HCL 2 MG/2 ML VIAL ONE (10:45)
[2017-11-19] MEDS ORDERED: HEPARIN-NS/PF FLUSH BAG 2,000 ML IV FLUSH ONE (10:45)
[2017-11-19] MEDS ORDERED: NITROGLYCERIN INJ 5 ML ONE (10:46)
[2017-11-19] MEDS ORDERED: TIROFIBAN INFUSION INJ 250 ML IV ONE (11:11)
[2017-11-19] MEDS ORDERED: TICAGRELOR 90 MG TAB PO ONE (11:31)
[2017-11-19] MEDS ORDERED: SODIUM CHLOR 0.9% 1000 ML INJ 1,000 ML IV SCH (11:45)
[2017-11-19] MEDS: TIROFIBAN INFUSION INJ 250 ML IV SCH ×2 (11:45→21:50)
[2017-11-19] MEDS ORDERED: MISC INFORMATION XX ONE (11:45)
[2017-11-19] MEDS ORDERED: TEMAZEPAM 15 MG CAP PO PRN (11:45)
--- NOTE | 2017-11-19 11:45 | PD.CARD.PN ---
Subjective Subjective Remarks Somnolent. Denies CP, dyspnea, dizziness. Objective Medications Item Value Date Time Aspirin 81 mg 11/18/17 0900 (Ecotrin Ec) DAILY/PO 11/19/17 0943 Heparin Sodium/ 250 ml @ 10 mls/hr 11/17/172029 Dextrose TITRATE PRN/IV 11/18/172057 Current Medications Medications (Trade) Dose Ordered Sig/Vicki Route Start Time Stop Time Status Last Admin (Heparin Inj) 5,000 units UNSCH PRN IV PUSH 11/18/17 02:30 (Heparin Inj) 2,500 units UNSCH PRN IV PUSH 11/18/17 02:30 Heparin Sodium/ Dextrose 250 ml @ 10 mls/hr TITRATE PRN IV 11/17/17 20:30 11/18/17 20:58 (D50w (Vial) Inj) 50 ml UNSCH PRN IV PUSH 11/17/17 20:30 (Glucagon Inj) 1 mg UNSCH PRN OTHER 11/17/17 20:30 (NovoLOG SUPPLEMENTAL SCALE) 1 ACHS SLIDING SCALE SQ 11/17/17 21:00 11/17/17 22:07 Sodium Chloride 1,000 ml @ 100 mls/hr Q10H IV 11/17/17 20:22 11/18/17 17:15 (NS Flush) 2 ml UNSCH PRN IV FLUSH 11/17/17 20:30 (NS Flush) 2 ml BID IV FLUSH 11/17/17 21:00 11/19/17 09:43 (Zofran Inj) 4 mg Q6H PRN IVP 11/17/17 20:30 (Tylenol) 650 mg Q6H PRN PO 11/17/17 20:30 ([place]oro 5-325 Mg) 1 tab Q4H PRN PO 11/17/17 20:30 (Morphine Inj) 2 mg Q3H PRN IV PUSH 11/17/17 20:30 11/17/17 22:34 (Jadyn-Colace) 1 tab BID PO 11/17/17 21:00 11/19/17 09:43 (Milk Of Magnesia Liq) 30 ml Q12H PRN PO 11/17/17 20:30 (Senokot) 17.2 mg Q12H PRN PO 11/17/17 20:30 (Dulcolax Supp) 10 mg DAILY PRN RECTAL 2/24/18 20:30 (Lactulose Liq) 30 ml DAILY PRN PO 11/17/17 20:30 (Pravachol) 40 mg HS PO 11/17/17 21:00 11/18/17 20:52 (Ecotrin Ec) 81 mg DAILY PO 11/18/17 09:00 11/19/17 09:43 Sodium Chloride 1,000 ml @ 100 mls/hr Q10H IV 11/18/17 10:38 11/23/17 10:37 11/19/17 06:38 (Benadryl) 50 mg HUMAN RESOURCES REPRESENTATIVE PO 11/18/17 10:45 11/22/17 10:44 11/19/17 09:56 (Valium) 10 mg HUMAN RESOURCES REPRESENTATIVE PO 11/18/17 10:45 11/22/17 10:44 11/19/17 09:56 (Versed Inj) 1 mg HUMAN RESOURCES REPRESENTATIVE IV PUSH 11/18/17 10:45 11/22/17 10:44 Vital Signs / I&O Vital Signs Date Time Temp Pulse Resp B/P (MAP) Pulse Ox O2 Delivery O2 Flow Rate FiO2 11/19/17 06:00 55 11/19/17 04:00 56 11/19/17 04:00 98.4 56 11 120/68 (85) 98 11/19/17 02:00 68 11/19/17 00:00 98.5 66 21 121/76 (91) 98 11/19/17 00:00 66 11/18/17 22:00 74 11/18/17 22:00 74 24 137/78 (97) 95 11/18/17 20:00 98.7 77 21 113/73 (86) 96 11/18/17 20:00 77 11/18/17 18:00 75 11/18/17 17:00 68 11/18/17 16:00 76 11/18/17 16:00 98.1 76 20 110/68 (82) 96 11/18/17 15:00 82 11/18/17 14:00 66 11/18/17 13:00 64 11/18/17 12:00 65 11/18/17 12:00 98.3 65 16 107/62 (77) 93 I/O 11/18/17 11/18/17 11/18/17 11/19/1711/19/18 2/26/18 07:00 15:00 23:00 07:00 15:00 23:00 Intake Total 618.4 ml 240 ml Output Total 300 ml 800 ml 1000 ml Balance 318.4 ml -800 ml -760 ml Intake Oral 240 ml IV Total 618.4 ml Output Urine Total 300 ml 800 ml 1000 ml # Bowel Movements 0 1 1 Physical Exam GENERAL: Well developed, well nourished. No acute distress. HEENT: Jugular venous pressure is normal. CHEST: Lungs clear to auscultation anteriorly. CARDIAC: Regular rate and rhythm without S3, S4, or murmur. ABDOMEN: Soft, nontender, no hepatosplenomegaly. Bowel sounds present. EXTREMITIES: No clubbing, cyanosis, or edema. Laboratory Laboratory Tests Test 11/18/17 12:45 11/18/17 20:09 Activated Partial Thromboplast Time 33.6 SEC 33.2 SEC Assessment and Plan Problem List: (1) CAD (coronary artery disease) ICD Codes: I25.10 - Atherosclerotic heart disease of [place] coronary artery without angina pectoris Status: Chronic Plan: Acute NSTEMI. Cath today shows 95% distal RCA stented with 4.0 mm drug eluting stent. Patient clinically stable. Rec continue Brilinta, aspirin. Start beta alexsandra and YONIS-I, possible discharge tomorrow. (2) Hypertension ICD Codes: I10 - Essential (primary) hypertension Status: Chronic Plan: Stable. Normotensive. (3) Hyperlipidemia ICD Codes: E78.5 - Hyperlipidemia, unspecified Status: Chronic Plan: Overall good lipid profile. Rec continue statin in light of his severe CAD. Code Status full code Discussed Condition With patient and his Problem Qualifiers (1) CAD (coronary artery disease): Qualified Codes: I25.110 - Atherosclerotic heart disease of [place] coronary artery with unstable angina pectoris (2) Hypertension: Qualified Codes: I10 - Essential (primary) hypertension (3) Hyperlipidemia: Qualified Codes: E78.2 - Mixed hyperlipidemia Nelson Huttno MD Nov 19, 2017 11:45
--- NOTE | 2017-11-19 11:48 | CATHPROC ---
[employer] HIS Report Study Information Study Number Admission Scheduled Start Study Start [id number] Nov 17 2017 8:57PM 11/18/2017 Nov 19 2017 10:37AM [place] [facility] Cardiac Catheterization Admit Source Facility Department Other [facility] Special Needs Babysitter Physician and Clinical Staff Initial Nelson Cruz Metal Hanging Helper Gurvinder Rollins,BETTY Metal Hanging Helper Bayron Harrison RN Other cathlab, cathlab Recorder Xavi Mccann RCIS(BS) Scrub Yolande Powell RT(R) Procedures Performed Procedure Location (Site) Vessel Name Coronary Angiograms LCA Left Coronary Coronary Angiograms RCA Right Coronary Drug Eluting Inflatio RCA Dist Right Coronary L Heart Cath PTCA Radial (right) Radial Art. PTCA RCA Dist Right Coronary Wire insertion Radial (right) Radial Art. Equipment Time Senior Technical Writer Description Size Mfg Part Number Used/Scraped [id number] 11:13 PA CRITICAL CARE WIRE, ASAHI PROWATER 180CM 180CM Used *[id number] TRANSDUCER, TRUWAVE [id number] 10:38 CHE BECERRA * Used W/STOCKCOCK *[id number] *[id number] *[id number] 10:38 MALLINCKRODT SYRINGE, ANGIOMAT 150ML 150ML *[id number] Used 2S MEDICAL CONCEPT DRAPE, RADIAL FEMORAL FULL 10:38 * [id number] *[id number] Used DEVELOPMENT BODY [id number] 10:38 [employer]in INDUSTRIES PACK, CCL CUSTOM * Used *[id number] 10:38 [employer] SUPPORT, ARTERIAL ADULT [id number] *[id number] Used [id number] 10:38 [employer]ermin PACER PEN, SKIN DUAL W/ RULER * Used *[id number] 11:18 MEDTRONIC BALLOON, 3.5 X 15MM EUPHORA 15MM Used *[id number] BALLOON, 4.0 X 20MM NC [id number] 11:21 MEDTRONIC 20MM Used EUPHORA *[id number] 11:25 MEDTRONIC STENT, 4.0 22MM MARCELLE 4.0 22MM Used *[id number] 11:13 [employer] MEDICAL 30 AJ INDEFLATOR Used *[id number] BAND, RADIAL COMPRESSION TR [id number] 11:35 [employer] MEDICAL 29CM Used LARGE 29 *[id number] SHEATH, FR6 RADIAL PRELUDE 10:38 Intellicyt FR 6 [id number] Used EASE 11CM [id number] 10:38 [employer] MEDICAL WIRE, EXCHANGE 260CM 3MMJ 260CM Used *[id number] 10:38 NAMIC MANIFOLD, 4 PORT * Used *[id number] 10:38 [employer]COMED OMNIPAQUE, 350 MG, 150ML 150ML [id number] Used [id number] 10:38 [place] [employer] BLANKET,WARM AIR CCL * Used *[id number] CATHETER, FR5 OPTITORQUE [id number] 10:38 [employer] MEDICAL FR 5 Used RADIAL TIG 4.0 *[id number] Equipment Model, Serial, Lot Number and Expiration Data Description Model Number Serial Number Lot Number Expiration Date BALLOON, 4.0 X 20MM MA [id number] 07-04-2019 EUPHORA STENT, 4.0 22MM MARCELLE [id number] 05-10-2019 History: Current Medications Medication Dosage/Unit Route Frequency Last Date/Time Taken ASA Beta Didier History: Allergies Allergy Reaction No Known Allergies History: Risk Factors Family History of Hypertension Dyslipidemia Previous RI Previous Heart Failure Premature CAD Yes Yes No No No Prior Valve Prior PCI Prior CABG Surgery No No No Cerebrovascular Peripheral Artery Chronic Lung On Dialysis Diabetes Disease Disease Disease No No No No No History: Symptoms/Diagnosis Selection Items Chest pain History: Stress Tests Stress or Imaging Studies Performed No History: Other Disease Selection Items HTN History: Other Current Smoker No Labs Hgb (g/dl) Hct (%) WBC (l/cumm) Platelets (thousands) 11.60-17.00 35.00-51.00 4.00-11.00 150.00-450.00 14.4 43.2 8.8 215 Glucose (mg/dl) BUN (mg/dl) Creatinine (mg/dl) BUN:Creatinine (1:x) 74.00-106.00 7.00-18.00 0.50-1.30 10.00-20.00 187 13 1.2 10.8 Na (meq/l) K (meq/l) 136.00-145.00 3.50-5.10 140 4.7 INR (PTT:PT) 0.90-1.10 1.1 Troponin I (ng/ml) CPK-MB (ng/ML) 0.02-0.05 0.50-3.60 3.3 Not Drawn Medication Medication Total Dose (Bolus/Oral) Medication Total Dosage/Unit 1% XYLOCAINE 3 mL AGGRASTAT BOLUS 54 mL BRILINTA 180 mg FENTANYL 50 mcg RADIAL COCKTAIL 5 mL (Bolus) Medications (Bolus/Oral) Medication Time Given Dosage/Unit Administered By Reason 1% XYLOCAINE 11/19/2017 11:04:25 AM 3 mL Nelson Hutton 3 mL 1% XYLOCAINE given in lab by Nelson Hutton in Right Radial via Subcutaneous. Ntg 200mcg Verapamil 2.5mg Heparin RADIAL COCKTAIL 11/19/2017 11:05:40 AM 5 mL (Bolus) Nelson Hutton 2500U 5 mL (Bolus) RADIAL COCKTAIL given in lab by Nelson Hutton in Right Radial via Radial. Using [Solution Name]. Ordered by Nelson Hutton. Reason: Ntg 200mcg Verapamil 2.5mg Heparin 2500U. AGGRASTAT BOLUS 11/19/2017 11:16:48 AM 54 mL Gurvinder Rollins 54 mL AGGRASTAT BOLUS given in lab by Gurvinder Rollins RN in Left Antecubital via Peripheral IV. Order ed by Nelson Hutton. FENTANYL 11/19/2017 11:23:34 AM 50 mcg Gurvinder Rollins 50 mcg FENTANYL given in lab by Gurvinder Rollins RN in Left Antecubital via Peripheral IV. Ordered by Nelson Hutton. BRILINTA 11/19/2017 11:40:00 AM 180 mg Bayron Harrison 180 mg BRILINTA given in lab by Bayron Harrison RN. Ordered by Nelson Hutton. Medication (Drip) Medication Time Given Dosage/Unit Concentration/Unit Diluent (ml) Solutio n AGGRASTAT DRIP 11/19/2017 11:20:32 AM 0.15 mcg/kg/min 12.5 mg 250 NaCl .9 0.15 mcg/kg/min AGGRASTAT DRIP given in lab by Gurvinder Rollins RN via Peripheral IV. Pump/Drip Flow = 19.08 ml/hr using NaCl .9 with a concentration of 12.5 mg in 250 ml. Ordered by Nelson Hutton. IV Solutions 11/19/2017 10:37:24 AM 0 mL (IV) 500 NaCl .9 Patient arrived on IV Solutions given by cathlab, cathlab in Left Antecubital via Peripheral IV. Pump /Drip Flow = 20 ml/hr using NaCl .9. Ordered by Nelson Hutton. Initial Case Assessment Cardiovascular HR Rhythm NIBP Chest Pain 84 nsr 126/87 0 Edema Present Skin color Skin None Normal Warm Dry Circulatory - Right Pulses Dorsalis Pedis Femoral Radial 2 2 3 Scale (0,1,2,3,4,d) Scale (0,1,2,3,4,d) Neurological State Oriented to time-place- Drowsy Moves all extremities person Respiration - General Respiration Rate SpO2 (%) (B/min) 15 95 Final Case Assessment Cardiovascular HR NIBP Chest Pain 71 139/90 0 Edema Present Skin color Skin None Normal Warm Dry Neurological State Oriented to time-place- Alert Moves all extremities person Respiration - General Respiration Rate SpO2 (%) (B/min) 14 95 Chronological Log Time Study Chronological Log 10:37:12 Patient arrived via Bed. Heparin drip DCed upon picker tender helper per MD. 10:37:12 Patient Name, D.O.B, / Armband Verified By R.N. 10:37:13 Consent signed by the physician and the patient and verified by the Special Needs Babysitter staff. 10:37:13 Pre-op and post- op instructions given; patient acknowledges understanding of instructions. 10:37:14 Verbal Stimulation=2 Physical Stimulation=2 Airway=2 Respiration=2 TOTAL=8. (0=absent, 1=li mited, 2=present) 10:37:15 Presedation assessment performed by Special Needs Babysitter RN. 10:37:15 Allens test performed on the right radial and ulnar artery. POSITIVE. 10:37:16 Immediate Presedation assesment performed by physician. 10:37:19 Patient has been NPO for More than 6Hrs. 10:37:20 Skin Breakdown- none per patient 10:37:23 Ivon Prominences Protected 10:37:24 A # 20 IV was noted in the Antecubital (left). Grade = 0 Patient arrived on IV Solutions given by cathlab, cathlab in Left Antecubital via Peripheral IV . Pump/Drip Flow = 20 10:37:24 ml/hr using NaCl .9. Ordered by Nelson Hutton. 10:37:25 History and physical on the chart or being dictated. Vitals capture started with the following parameters, Patient=Adult, Interval=5 min, Initial Pr kzogud=473 mmHg, 10:42:26 Deflation Rate=5 mmHg, Cuff placed on Left Arm Assessment: Initial Case, HR=84 BPM, Rhythm=nsr, WVUR=729/87 mmhg, Chest Pain=0, Edema=None, Co brenda=Normal, Skin = Warm, Dry 10:42:29 Right Pulses: Marino Ped=2, Femoral=2, Radial=3 Neurological: State=Drowsy, Ox3, CHAN Respiration: Resp=15 B/min, SpO2=95 % 10:45:58 Reference ECG taken Vitals capture started with the following parameters, Patient=Adult, Interval=5 min, Initial Pr yppfgq=090 mmHg, 10:46:04 Deflation Rate=5 mmHg, Cuff placed on Left Arm Vitals capture started with the following parameters, Patient=Adult, Interval=5 min, Initial Pr xvfczj=654 mmHg, 10:50:38 Deflation Rate=5 mmHg, Cuff placed on Left Arm 10:51:18 HR=59 bpm, WCSL=268/87 mmhg, SpO2=97.0 %, Resp=14 B/min, Pain=0, Hemalatha=10, Suggs=2 10:55:17 Right Radial and groin(s) prepped with 2% chlorhexidine, and draped after a 3 min. waiting time. 10:55:27 MD paged 10:56:43 HR=54 bpm, XNKT=444/89 mmhg, ZnY2=966.0 %, Resp=15 B/min, Pain=0, Hemalatha=10, Suggs=2 10:58:27 MD responded 10:58:57 Pressure channel 1 zeroed. 11:00:52 MD arrived. 11:00:56 Contrast Scanned 11:00:57 Immediate Presedation assesment performed by physician. 11:01:20 HR=57 bpm, HWOU=263/44 mmhg, SpO2=96.0 %, Resp=15 B/min Time Out. Correct patient, correct procedure, correct physician, power injector not loaded with contrast with surgical 11:04:12 team present. Time Out Concurred by MD and individual staff in procedure. 11:04:18 Case Start 11:04:19 Verbal Stimulation=2 Physical Stimulation=2 Airway=2 Respiration=2 TOTAL=8. (0=absent, 1=li mited, 2=present) 11:04:25 3 mL 1% XYLOCAINE given in lab by Nelson Hutton in Right Radial via Subcutaneous. 11:05:25 Access site was Right Radial Artery. A SHEATH, FR6 RADIAL PRELUDE EASE 11CM FR 6 was advanced into the Radial (right) using the Perc utaneous 11:05:32 technique. 5 mL (Bolus) RADIAL COCKTAIL given in lab by Nelson Hutton in Right Radial via Radial. Using [So lution Name]. Ordered 11:05:40 by Nelson Hutton. Reason: Ntg 200mcg Verapamil 2.5mg Heparin 2500U. A CATHETER, FR5 OPTITORQUE RADIAL TIG 4.0 FR 5 was advanced over a wire. OMNIPAQUE, 350 MG, 150 ML 150ML 11:05:47 was used for injections. 11:06:04 HR=57 bpm, MVKF=251/92 mmhg, SpO2=96.0 %, Resp=13 B/min, Pain=0, Hemalatha=10, Suggs=2 11:07:49 The LCA was injected and visualized at various angles. OMNIPAQUE, 350 MG, 150ML 150ML used . Recorded Pressure: Ao, HR=76, Condition=Condition 1 11:07:51 (Aorta) Ao 129/79/102 11:09:35 The RCA was injected and visualized at various angles. OMNIPAQUE, 350 MG, 150ML 150ML used . Recorded Pressure: Ao, HR=77, Condition=Condition 1 11:10:04 (Aorta) Ao 117/78/97 After removing the current catheter a HS SH GUIDE CATHETER FR 6 was advanced over a WIRE, EXCHA NGE 260CM 11:10:10 3MMJ 260CM. 11:11:12 HR=75 bpm, IUFF=285/81 mmhg, SpO2=96.0 %, Resp=15 B/min, Pain=0, Hemalatha=10, Suggs=2 11:12:51 A WIRE, JOSE ALFREDO PROWATER 180CM 180CM was inserted via Radial (right). 11:14:45 Activated Clotting Time Drawn 11:16:13 HR=69 bpm, MQBF=233/84 mmhg, SpO2=97.0 %, Resp=16 B/min, Pain=0, Hemalatha=10, Suggs=2 54 mL AGGRASTAT BOLUS given in lab by Gurvinder Rollins RN in Left Antecubital via Peripheral IV. Ordered by Anni 11:16:48 Nelson. 11:17:04 Interventional wire has crossed the lesion 11:17:13 A BALLOON, 3.5 X 15MM EUPHORA 15MM was inserted over WIRE, ASAHI PROWATER 180CM 180CM via t he RCA Dist. A BALLOON, 3.5 X 15MM EUPHORA 15MM over a WIRE, ASAHI PROWATER 180CM 180CM in the RCA Dist was inflated 11:18:44 using a 30 AJ INDEFLATOR at 13 aj for 35 sec. A BALLOON, 3.5 X 15MM EUPHORA 15MM over a WIRE, ASAHI PROWATER 180CM 180CM in the RCA Dist was inflated 11:19:30 using a 30 AJ INDEFLATOR at 14 aj for 25 sec. 11:20:26 Balloon Removed. 0.15 mcg/kg/min AGGRASTAT DRIP given in lab by Gurvinder Rollins RN via Peripheral IV. Pump/Drip Flow = 19.08 ml/hr 11:20:32 using NaCl .9 with a concentration of 12.5 mg in 250 ml. Ordered by Nelson Hutton. 11:20:44 ACT (Normal Range 90-180) = 352 A BALLOON, 4.0 X 20MM NC EUPHORA 20MM was inserted over WIRE, ASAHI PROWATER 180CM 180CM via th e RCA 11:20:56 Dist. 11:21:14 HR=68 bpm, UVHM=051/75 mmhg, SpO2=98.0 %, Resp=8 B/min, Pain=0, Hemalatha=10, Suggs=2 A BALLOON, 4.0 X 20MM NC EUPHORA 20MM over a WIRE, ASAHI PROWATER 180CM 180CM in the Radial (ri ght) was 11:23:12 inflated using a 30 AJ INDEFLATOR at 17 aj for 30 sec. 11:23:34 50 mcg FENTANYL given in lab by Gurvinder Rollins, BETTY in Left Antecubital via Peripheral IV. O rdered by Nelson Hutton. 11:24:20 Balloon Removed. A STENT, 4.0 22MM MARCELLE 4.0 22MM was advanced through a HS SH GUIDE CATHETER FR 6 over a WIRE, A GIBSON 11:25:52 PROWATER 180CM 180CM. A STENT, 4.0 22MM MARCELLE 4.0 22MM was deployed using a 30 AJ INDEFLATOR at 17 atmospheres for 30 seconds in 11:26:40 the RCA Dist. 11:26:44 HR=68 bpm, VUGT=258/86 mmhg, SpO2=93.0 %, Resp=12 B/min, Pain=0, Hemalatha=10, Suggs=2 11:28:49 Delivery device removed After removing the current catheter a MPA-2 INFINITI CATHETER FR 6 was advanced over a WIRE, EX CHANGE 260CM 11:29:01 3MMJ 260CM. Recorded Pressure: LV, HR=70, Condition=Condition 1 11:30:21 (Left Ventricle) LV 135/8/15 Recorded Pressure: LV, Ao, HR=63, Condition=Condition 1 11:30:40 (Left Ventricle) LV 129/10/19, (Aorta) Ao 147/82/110 11:31:10 HR=72 bpm, ABKO=130/90 mmhg, SpO2=93.0 %, Resp=16 B/min, Pain=0, Hemalatha=10, Suggs=2 11:32:05 Catheter was removed 11:32:14 Case End Assessment: Final Case, HR=71 BPM, VCKV=335/90 mmhg, Chest Pain=0, Edema=None, Color=Normal, Sk in = Warm, Dry 11:32:44 Neurological: State=Alert, Ox3, CHAN Respiration: Resp=14 B/min, SpO2=95 % Radial Compression Device Used. 15 mLs of air placed in BAND, RADIAL COMPRESSION TR LARGE 29 29 CM. Affected 11:34:42 hand 93 % O2 saturation. 11:35:45 No case complications noted. 11:35:57 Bedside Report will be given. 11:36:54 HR=62 bpm, JXMV=797/80 mmhg, SpO2=96.0 %, Resp=16 B/min, Pain=0, Hemalatha=10, Suggs=2 11:38:10 Vitals capture stopped. 11:39:01 A Left Heart Cath was performed. 11:40:00 180 mg BRILINTA given in lab by Bayron Harrison RN. Ordered by Nelson Hutton. 11:40:50 Bedside Report will be given. 11:44:12 Patient moved to stretcher End Study - Contrast Media Used In Study Contrast Total Opened (mL) Total Used (mL) Total Wasted (mL) Omnipaque 150 110 40 End Study - Maximum Contrast Load Max Contrast Load (mL) 441.7 End Study - Radiation Exposure Fluoro Time (minutes) 7.8 End Study - Patient Disposition Complications Transferred To Interventional Outcome No Critical Care Bed successful
--- NOTE | 2017-11-19 11:51 | MA ---
cc: YOLANDA LUGO M.D. DATE: 11/19/2017. PROCEDURES PERFORMED: Left heart catheterization, selective coronary angiography, left ventriculography, angioplasty and stent of the distal right coronary artery. PROCEDURE NOTES: The patient was brought to the cardiac catheterization laboratory in a fasting state after having signed informed consent. The right radial region was prepped and draped as per policy and anesthetized with 1% lidocaine. Arterial access was obtained via the right radial artery and a 6-[place] sheath was placed. Coronary arteriography was performed using a [place] catheter. Left ventriculography was done using a multipurpose catheter. Percutaneous coronary intervention was done as described below. There were no apparent immediate complications. HEMODYNAMIC DATA: Left ventricle 130 with an end diastolic pressure of 15. Aorta 147/82 with a mean of 110. There was no significant transvalvular aortic gradient on pullback of the pigtail catheter. CORONARY ARTERIOGRAPHY: The left main is normal. The left anterior descending gives rise to a small to medium-sized first diagonal, which has up to 40% ostial to proximal disease. The proximal left anterior descending has relatively smooth, up to 20%, stenosis. The mid to distal left anterior descending has minimal luminal irregularities. The left circumflex is a relatively large vessel giving rise to a fairly large high obtuse marginal. There may be up to 40% ostial to proximal left circumflex disease. The obtuse marginals and the mid to distal left circumflex have minimal luminal irregularities. The right coronary artery is a very large dominant vessel, which is probably diffusely diseased. There is a 95% distal stenosis. LEFT VENTRICULOGRAPHY: Contrast injection of the left ventricle reveals possibly a small area of minimal inferior hypokinesis. Ejection fraction is estimated at 55%. PERCUTANEOUS CORONARY INTERVENTION DESCRIPTION: Aggrastat was given as per protocol. Adequate heparin was given during the procedure to achieve an ACT greater than 250 seconds. Using a 6-[place] hockey stick guiding catheter with side holes, the ostium of the right coronary artery was re-engaged. Using a 0.014 [place] guidewire, the distal disease was crossed without difficulty and the tip of the wire positioned in the posterior descending artery. Pre-dilation was done using a 3.5 mm Euphora balloon catheter, and then a 4.0 mm noncompliant balloon catheter. Stenting was done using a 4.0 x 22 mm Resolute [place] stent, which was deployed at approximately 16 atmospheres for thirty seconds. Final angiography shows overall good results with reduction of the initial stenosis to roughly 0% residual with no definite evidence for dissection or distal embolization. The patient tolerated the procedure well. He did not develop chest pains with balloon inflations. CONCLUSIONS: 1. Severe single vessel coronary artery disease. 2. Status post angioplasty and stent of the distal right coronary artery. 3. Overall normal left ventricular function with estimated ejection fraction of 55%. MD ISAIAH Sahu/MALU /11:33 AM /11:38 AM MTDFranklyn
[2017-11-19] MEDS ORDERED: IOHEXOL 350 MG/ML 100 ML BTL (for Cath Lab) OTHER ONE (14:44)
[2017-11-19] MEDS ORDERED: IOHEXOL 350 MG/ML 50 ML BTL (for Cath Lab) OTHER ONE (14:44)
[2017-11-19] MEDS ORDERED: TICAGRELOR 90 MG TAB PO SCH (21:00)
[2017-11-19] MEDS: ENALAPRIL MALEATE 2.5 MG TAB PO SCH (21:50)
[2017-11-19] MEDS: PRAVASTATIN SOD 40 MG TAB PO SCH (21:50)
[2017-11-19] MEDS: CARVEDILOL 3.125 MG TAB PO SCH (21:50)
[2017-11-20] VITALS (7 sets, daily range): BP systolic 114–169; BP diastolic 57–93; PULSE 67–80; RESP 18–22; TEMP 98.6–99; O2SAT 95–97
[2017-11-20] MEDS: SODIUM CHLOR 0.9% 1000 ML INJ 1,000 ML IV SCH ×3 (02:38→08:04)
[2017-11-20 04:08] LABS: AUTOMATED NEUTROPHIL # 5.9 TH/MM3 (1.8-7.7); BASOPHIL % 0.4 % (0.0-2.0); EOSINOPHIL # 0.2 TH/MM3 (0-0.4); HEMATOCRIT 42.4 % (39.0-51.0); HEMOGLOBIN 14.4 GM/DL (13.0-17.0); LYMPH % 16.6 % (9.0-44.0); LYMPHOCYTE # 1.3 TH/MM3 (1.0-4.8); MEAN CELL VOLUME 92.7 FL (80.0-100.0); MEAN CORPUSCULAR HEMOGLOBIN 31.5 PG (27.0-34.0); MEAN PLATELET VOLUME 9.5 FL (7.0-11.0); MONO % 5.8 % (0.0-8.0); MONOCYTE # 0.5 TH/MM3 (0-0.9); NEUT % 75.2 % (16.0-70.0); PLATELET COUNT 204 TH/MM3 (150-450); RED BLOOD COUNT 4.57 MIL/MM3 (4.50-5.90); RED CELL DISTRIBUTION WIDTH 13.5 % (11.6-17.2); WHITE BLOOD COUNT 7.9 TH/MM3 (4.0-11.0)
[2017-11-20 04:33] LABS: BICARBONATE 23.7 MEQ/L (21.0-32.0); CALCIUM 9.1 MG/DL (8.5-10.1); CREATININE 0.76 MG/DL (0.60-1.30)
[2017-11-20] MEDS: DOCUSATE SODIUM 50 MG/SENNA 8.6 MG TAB PO SCH (08:04)
[2017-11-20] MEDS: SODIUM CHLORIDE 0.9% FLUSH 10 ML FLUSH IV FLUSH SCH (08:04)
[2017-11-20] MEDS: CARVEDILOL 3.125 MG TAB PO SCH (08:04)
[2017-11-20] MEDS: INSULIN ASPART SUPPLEMENTAL SCALE SQ SCH ×2 (08:10→12:43)
--- NOTE | 2017-11-20 08:36 | PD.CARD.PN ---
Subjective Subjective Remarks Denies CP, dyspnea, dizziness, wrist pain, palpitations. Objective Medications Item Value Date Time Aspirin 81 mg 11/20/17 0900 (Aspirin Chew) DAILY/PO 11/20/17 0804 Ticagrelor 90 mg 11/20/17 0900 (Brilinta) BID/PO 11/20/17 0810 Carvedilol 3.125 mg 11/19/17 2100 (Coreg) Q12HR/PO 11/20/17 0804 Enalapril Maleate 2.5 mg 11/19/17 2100 (Vasotec) BID/PO 11/19/17 2150 Current Medications Medications (Trade) Dose Ordered Sig/Vicki Route Start Time Stop Time Status Last Admin (Heparin Inj) 5,000 units UNSCH PRN IV PUSH 11/18/17 02:30 (Heparin Inj) 2,500 units UNSCH PRN IV PUSH 11/18/17 02:30 Heparin Sodium/ Dextrose 250 ml @ 10 mls/hr TITRATE PRN IV 11/17/17 20:30 11/18/17 20:58 (D50w (Vial) Inj) 50 ml UNSCH PRN IV PUSH 11/17/17 20:30 (Glucagon Inj) 1 mg UNSCH PRN OTHER 11/17/17 20:30 (NovoLOG SUPPLEMENTAL SCALE) 1 ACHS SLIDING SCALE SQ 11/17/17 21:00 11/20/17 08:10 Sodium Chloride 1,000 ml @ 100 mls/hr Q10H IV 11/17/17 20:22 11/20/17 03:33 (NS Flush) 2 ml UNSCH PRN IV FLUSH 11/17/17 20:30 (NS Flush) 2 ml BID IV FLUSH 11/17/17 21:00 11/20/17 08:04 (Zofran Inj) 4 mg Q6H PRN IVP 11/17/17 20:30 (Tylenol) 650 mg Q6H PRN PO 11/17/17 20:30 (Brusly 5-325 Mg) 1 tab Q4H PRN PO 11/17/17 20:30 (Morphine Inj) 2 mg Q3H PRN IV PUSH 11/17/17 20:30 11/17/17 22:34 (Jadyn-Colace) 1 tab BID PO 11/17/17 21:00 11/19/17 09:43 (Milk Of Magnesia Liq) 30 ml Q12H PRN PO 11/17/17 20:30 (Senokot) 17.2 mg Q12H PRN PO 11/17/17 20:30 (Dulcolax Supp) 10 mg DAILY PRN RECTAL 11/17/17 20:30 (Lactulose Liq) 30 ml DAILY PRN PO 11/17/17 20:30 (Pravachol) 40 mg HS PO 11/17/17 21:00 11/19/17 21:50 Sodium Chloride 1,000 ml @ 100 mls/hr Q10H IV 11/18/17 10:38 11/23/17 10:37 11/19/17 06:38 (Benadryl) 50 mg DOPER PO 11/18/17 10:45 11/22/17 10:44 11/19/17 09:56 (Valium) 10 mg DOPER PO 11/18/17 10:45 11/22/17 10:44 11/19/17 09:56 (Versed Inj) 1 mg DOPER IV PUSH 11/18/17 10:45 11/22/17 10:44 (Restoril) 15 mg HS PRN PO 11/19/17 11:45 (Aspirin Chew) 81 mg DAILY PO 11/20/17 09:00 11/20/17 08:04 (Coreg) 3.125 mg Q12HR PO 11/19/17 21:00 11/20/17 08:04 (Vasotec) 2.5 mg BID PO 11/19/17 21:00 11/19/17 21:50 (Brilinta) 90 mg BID PO 11/20/17 09:00 11/20/17 08:10 Vital Signs / I&O Vital Signs Date Time Temp Pulse Resp B/P (MAP) Pulse Ox O2 Delivery O2 Flow Rate FiO2 11/20/17 06:00 73 11/20/17 04:00 70 11/20/17 04:00 99.0 70 18 114/62 (79) 95 11/20/17 02:00 69 11/20/17 00:00 68 11/20/17 00:00 98.8 68 19 124/57 (79) 96 11/19/17 22:00 74 11/19/17 20:00 80 11/19/17 20:00 98.0 88 25 160/90 (113) 97 11/19/17 18:00 89 11/19/17 16:00 80 11/19/17 16:00 98.4 80 21 141/83 (102) 98 11/19/17 15:00 71 11/19/17 14:00 73 11/19/17 12:00 98.6 62 19 131/67 (88) 98 11/19/17 12:00 57 11/19/17 10:00 68 I/O 11/19/17 11/19/17 11/19/17 11/20/17 11/20/17 11/20/17 07:00 15:00 23:00 07:00 15:00 23:00 Intake Total 240 ml 1681 ml 1411 ml Output Total 1000 ml 1750 ml Balance -760 ml -69 ml 1411 ml Intake Oral 240 ml 120 ml 240 ml IV Total 1561 ml 1171 ml Output Urine Total 1000 ml 1750 ml # Voids 6 4 # Bowel Movements 1 3 1 Physical Exam GENERAL: Well developed, well nourished. No acute distress. HEENT: Jugular venous pressure is normal. CHEST: Lungs clear to auscultation anteriorly. CARDIAC: Regular rate and rhythm without S3, S4, or murmur. ABDOMEN: Soft, nontender, no hepatosplenomegaly. Bowel sounds present. EXTREMITIES: No clubbing, cyanosis, or edema. Right radial arteriotomy site OK , normal radial pulse. Laboratory Laboratory Tests Test 11/20/17 02:50 White Blood Count 7.9 TH/MM3 Red Blood Count 4.57 MIL/MM3 Hemoglobin 14.4 GM/DL Hematocrit 42.4 % Mean Corpuscular Volume 92.7 FL Mean Corpuscular Hemoglobin 31.5 PG Mean Corpuscular Hemoglobin Concent 34.0 % Red Cell Distribution Width 13.5 % Platelet Count 204 TH/MM3 Mean Platelet Volume 9.5 FL Neutrophils (%) (Auto) 75.2 % Lymphocytes (%) (Auto) 16.6 % Monocytes (%) (Auto) 5.8 % Eosinophils (%) (Auto) 2.0 % Basophils (%) (Auto) 0.4 % Neutrophils # (Auto) 5.9 TH/MM3 Lymphocytes # (Auto) 1.3 TH/MM3 Monocytes # (Auto) 0.5 TH/MM3 Eosinophils # (Auto) 0.2 TH/MM3 Basophils # (Auto) 0.0 TH/MM3 CBC Comment DIFF FINAL Differential Comment Blood Urea Nitrogen 8 MG/DL Creatinine 0.76 MG/DL Random Glucose 146 MG/DL Calcium Level 9.1 MG/DL Sodium Level 141 MEQ/L Potassium Level 4.0 MEQ/L Chloride Level 108 MEQ/L Carbon Dioxide Level 23.7 MEQ/L Anion Gap 9 MEQ/L Estimat Glomerular Filtration Rate 101 ML/MIN Total Creatine Kinase 252 U/L Assessment and Plan Problem List: (1) CAD (coronary artery disease) ICD Codes: I25.10 - Atherosclerotic heart disease of [place] coronary artery without angina pectoris Status: Chronic Plan: Acute NSTEMI. Cath yesterday showed 95% distal RCA stented with 4.0 mm drug eluting stent. Patient clinically stable. Rec continue Brilinta, aspirin , beta alexsandra, YONIS-I. OK to discharge later this afternoon from my standpoint , 3-4 week f/u with me, scripts on front of chart. (2) Hypertension ICD Codes: I10 - Essential (primary) hypertension Status: Chronic Plan: Stable. Normotensive this morning. Monitor as outpatient. (3) Hyperlipidemia ICD Codes: E78.5 - Hyperlipidemia, unspecified Status: Chronic Plan: Overall good lipid profile. Rec continue statin in light of his severe CAD. Rec continuing his usual atorvastatin. Code Status full code Discussed Condition With patient Problem Qualifiers (1) CAD (coronary artery disease): Qualified Codes: I25.110 - Atherosclerotic heart disease of [place] coronary artery with unstable angina pectoris (2) Hypertension: Qualified Codes: I10 - Essential (primary) hypertension (3) Hyperlipidemia: Qualified Codes: E78.2 - Mixed hyperlipidemia Nelson Hutton MD Nov 20, 2017 08:36
[2017-11-20] MEDS ORDERED: ASPIRIN 81 MG CHEW TAB PO SCH (09:00)
[2017-11-20] MEDS ORDERED: TICAGRELOR 90 MG TAB PO SCH (09:00)
[2017-11-20] MEDS: ENALAPRIL MALEATE 2.5 MG TAB PO SCH (11:15)
--- NOTE | 2017-11-20 12:13 | HHI.PR ---
Subjective Remarks Follow up NSTEMI 11/20/17-patient seen and examined, denies any chest pain, shortness of breath or heart palpitation. No acute event overnight Objective Vitals Vital Signs Date Time Temp Pulse Resp B/P (MAP) Pulse Ox O2 Delivery O2 Flow Rate FiO2 11/20/17 10:00 67 11/20/17 08:00 80 11/20/17 08:00 98.6 80 22 169/93 (118) 97 11/20/17 06:00 73 11/20/17 04:00 70 11/20/17 04:00 99.0 70 18 114/62 (79) 95 11/20/17 02:00 69 11/20/17 00:00 68 11/20/17 00:00 98.8 68 19 124/57 (79) 96 11/19/17 22:00 74 11/19/17 20:00 80 11/19/17 20:00 98.0 88 25 160/90 (113) 97 11/19/17 18:00 89 11/19/17 16:00 80 11/19/17 16:00 98.4 80 21 141/83 (102) 98 11/19/17 15:00 71 11/19/17 14:00 73 I/O 11/19/17 11/19/17 11/19/17 11/20/17 11/20/17 11/20/17 07:00 15:00 23:00 07:00 15:00 23:00 Intake Total 240 ml 1681 ml 1411 ml Output Total 1000 ml 1750 ml Balance -760 ml -69 ml 1411 ml Intake Oral 240 ml 120 ml 240 ml IV Total 1561 ml 1171 ml Output Urine Total 1000 ml 1750 ml # Voids 6 4 # Bowel Movements 1 3 1 Result Diagram: 11/20/17 0250 11/20/17 0250 Imaging Last Impressions Chest X-Ray 11/17/171916 Signed Impressions: Service Date/Time: Friday, November 17, 2017 19:22 - CONCLUSION: No acute cardiopulmonary abnormality is identified. Micheal Mendez MD Objective Remarks GENERAL: NAD SKIN: Warm and dry. HEAD: Normocephalic. EYES: No scleral icterus. No injection or drainage. NECK: Supple, trachea midline. No JVD or lymphadenopathy. CARDIOVASCULAR: Regular rate and rhythm without murmurs, gallops, or rubs. RESPIRATORY: Breath sounds equal bilaterally. No accessory muscle use. GASTROINTESTINAL: Abdomen soft, non-tender, nondistended. MUSCULOSKELETAL: No cyanosis, or edema. BACK: Nontender without obvious deformity. No CVA tenderness. Procedures s/p [facility] A/P Problem List: (1) Chest pain ICD Code: R07.9 - Chest pain, unspecified Status: Acute (2) Non-ST elevation [place] (NSTEMI) ICD Code: I21.4 - Non-ST elevation (NSTEMI) myocardial infarction Assessment and Plan 72 years man with - NSTEMI Cath 11/19/17 showed 95% distal RCA stented with 4.0 mm drug eluting stent Continue Brilinta, Aspirin, beta alexsandra, YONIS inhibitor, Lipitor -Hypertension: Continue with BB -Dyslipidemia: on statin -Diabetes mellitus; Resume oral meds- accu-check with SSI -DVT prophylaxis; on Heparin drip. Problem Qualifiers (1) Chest pain: Qualified Codes: R07.9 - Chest pain, unspecified Jimmy Dowell MD Nov 20, 2017 12:13
[2017-11-20] MEDS ORDERED: BRIL90TA PO (12:20)
[2017-11-20] MEDS ORDERED: CARV3.125 PO (12:20)
[2017-11-20] MEDS ORDERED: ENAL2.5T PO (12:20)
--- NOTE | 2017-11-20 12:22 | HHI.DS ---
Discharge Summary Admission Date Nov 17, 2017 at 20:57 Discharge Date: Nov 20, 2017 Admitting Diagnosis CP (1) Chest pain ICD Code: R07.9 - Chest pain, unspecified Status: Acute (2) Non-ST elevation [place] (NSTEMI) ICD Code: I21.4 - Non-ST elevation (NSTEMI) myocardial infarction Procedures s/p [facility] Brief History - From Admission patient is a 72 y/o male with history of hypertension, diabetes, dyslipidemia who presented to ER with chest pain. he says that the pain started around six last night. pain was midsternal with some radiation to the jaws and shoulders. pain was associated with some diaphoresis. it didn't respond to nitro as much. he denies any previous chest pain and was pain free at the time of my evaluation. he had a stress test four-five years ago which was reportedly normal. CBC/BMP: 11/20/17 0250 11/20/17 0250 Significant Findings Laboratory Tests Test 11/17/17 19:20 11/17/17 22:31 11/18/17 04:10 11/18/17 05:45 Activated Partial Thromboplast Time 20.4 SEC (24.3-30.1) Random Glucose 193 MG/DL (74-106) 187 MG/DL (74-106) Estimat Glomerular Filtration Rate 66 ML/MIN (>89) 58 ML/MIN (>89) Troponin I LESS THAN 0.02 NG/ML 3.33 NG/ML (0.02-0.05) Neutrophils (%) (Auto) 84.8 % (16.0-70.0) Lymphocytes # (Auto) 0.9 TH/MM3 (1.0-4.8) Alkaline Phosphatase 44 U/L (45-117) Aspartate Amino Transf (AST/SGOT) 61 U/L (15-37) Chloride Level 108 MEQ/L (98-107) Hemoglobin A1c 6.7 % (4.3-6.0) Triglycerides Level 221 MG/DL (42-150) Cholesterol Level 107 MG/DL (120-200) HDL Cholesterol 38.9 MG/DL (40.0-60.0) Test 11/18/17 12:45 11/18/17 20:09 11/20/17 02:50 Activated Partial Thromboplast Time 33.6 SEC (24.3-30.1) 33.2 SEC (24.3-30.1) Neutrophils (%) (Auto) 75.2 % (16.0-70.0) Random Glucose 146 MG/DL (74-106) Chloride Level 108 MEQ/L (98-107) PE at Discharge GENERAL: NAD SKIN: Warm and dry. HEAD: Normocephalic. EYES: No scleral icterus. No injection or drainage. NECK: Supple, trachea midline. No JVD or lymphadenopathy. CARDIOVASCULAR: Regular rate and rhythm without murmurs, gallops, or rubs. RESPIRATORY: Breath sounds equal bilaterally. No accessory muscle use. GASTROINTESTINAL: Abdomen soft, non-tender, nondistended. MUSCULOSKELETAL: No cyanosis, or edema. BACK: Nontender without obvious deformity. No CVA tenderness. Hospital Course Patient admitted and diagnosed with non-ST elevation RI for which cardiology was consulted. Initially he was started on heparin drip, Coreg and continued on aspirin as well as Lipitor. Patient underwent left heart catheterization with drug-eluting stent placement. He was started on Brilinta. Prior to discharge, patient conditions improved and vital remained stable. Pt Condition on Discharge: Good Discharge Disposition: Discharge Home Discharge Time: <= 30 minutes Discharge Instructions DIET: Follow Instructions for: Diabetic Diet Activities you can perform: Regular-No Restrictions Follow up Referrals: Cardiology - 3 Weeks PCP Follow-up - 1 Week New Medications: Carvedilol (Coreg) 3.125 Mg Tab 3.125 MG PO Q12HR for Blood Pressure Management, #60 TAB 3 Refills Enalapril (Enalapril) 2.5 Mg Tab 2.5 MG PO BID for Blood Pressure Management, #60 TAB 3 Refills Ticagrelor (Brilinta) 90 Mg Tab 90 MG PO BID for Prevent Blood Clot, #60 TAB 3 Refills Continued Medications: Aspirin (Aspirin) 81 Mg Chew 81 MG CHEW DAILY, TAB 0 Refills Atorvastatin (Lipitor) 10 Mg Tab 10 MG PO HS for Cholesterol Management, #30 TAB 0 Refills Canagliflozin (Invokana) 100 Mg Tab 100 MG PO DAILY for Blood Sugar Management, #30 TAB 0 Refills Take before 1st meal of day. Glipizide (Glipizide) 5 Mg Tab 5 MG PO BIDAC for Blood Sugar Management, #60 TAB 0 Refills Take 30 minutes before a meal Meloxicam (Mobic) 7.5 Mg Tab 7.5 MG PO DAILY for Pain, TAB 0 Refills Metformin (Metformin) 500 Mg Tab 500 MG PO BIDPC for Blood Sugar Management, #60 TAB 0 Refills Naproxen (Naproxen) 250 Mg Tab 250 MG PO BID, #60 TAB 0 Refills Sitagliptin (Januvia) 25 Mg Tab 25 MG PO DAILY for Blood Sugar Management, #30 TAB 0 Refills Venlafaxine (Effexor) 25 Mg Tab 25 MG PO Q12H, #60 TAB 0 Refills Discontinued Medications: Amlodipine (Norvasc) 2.5 Mg Tab 2.5 MG PO DAILY for Blood Pressure Management, #30 TAB 0 Refills Jimmy Dowell MD Nov 20, 2017 12:22
== END 2017-11-20 13:25 | disposition home or self-care (01) | DRG 247 ==
LOC: PHED 19:02 → PHEDA 20:57 → HIME 11-18 04:25
PROVIDERS: ADMIT Hospitalist; ATTEND Hospitalist
PROC: 4A023N7 Measurement of Cardiac Sampling and Pressure, Left Heart, Percutaneous Approach (ICD-10-PCS; 2017-11-19)
PROC: B2111ZZ Fluoroscopy of Multiple Coronary Arteries using Low Osmolar Contrast (ICD-10-PCS; 2017-11-19)
PROC: B2151ZZ Fluoroscopy of Left Heart using Low Osmolar Contrast (ICD-10-PCS; 2017-11-19)
PROC: 027034Z Dilation of Coronary Artery, One Artery with Drug-eluting Intraluminal Device, Percutaneous Approach (ICD-10-PCS; principal; 2017-11-19 11:00)
DX: I21.4 Non-ST elevation (NSTEMI) myocardial infarction (principal); E11.9 Type 2 diabetes mellitus without complications; I10 Essential (primary) hypertension; E78.2 Mixed hyperlipidemia; I25.110 Atherosclerotic heart disease of native coronary artery with unstable angina pectoris; Z82.49 Family history of ischemic heart disease and other diseases of the circulatory system; Z79.84 Long term (current) use of oral hypoglycemic drugs
CPT/HCPCS: 71046; 80048; 80053; 80061; 82550; 82948; 83036; 83735; 84484; 85002; 85025; 85610; 85730; 87641; 92928; 93005; 93458; 96374; 96375; 96376; C1725; C1769; C1874; C1887; C1893; J1644; J1815; J2250; J2270; J2405; J3010; J3246; J7030; Q0163; Q9967